=== PATIENT | male | born 1990 | race African-American/Black ===

== ENCOUNTER 2016-09-17 07:22 | Emergency (ER) | payer OTHER ==
[2016-09-17 07:26] VITALS: RESP 18; TEMP 97.9
[2016-09-17] MEDS ORDERED: ACETAMINOPHEN TAB 325 MG TAB PO STA (07:45)
[2016-09-17] MEDS ORDERED: KETOROLAC 60 MG/2 ML VIAL IM STA (07:45)
[2016-09-17] MEDS ORDERED: DIAZEPAM 5 MG TAB PO STA (07:45)
[2016-09-17] MEDS ORDERED: HYDROcodone/APAP 5-325MG 1 EACH TAB PO STA (07:45)
--- NOTE | 2016-09-17 08:48 | ED ---
General Adult HPI - General Chief complaint: Headache Stated complaint: not feeling well Time Seen by Provider: 09/17/16 07:27 Source: patient, RN notes reviewed, old records reviewed Mode of arrival: ambulatory Limitations: no limitations - History of Present Illness Initial comments: This is a 26-year-old male here with nonspecific symptoms. Patient has no significant medical history for mild marijuana smoking. No drugs or alcohol otherwise. Patient states he has mild back pain muscular pain occasional headache and feels that he may have fever but chills. Patient has no sick contacts or travel history no nausea vomiting or diarrhea. No recent hospitalizations. Patient has no modifying factors for sepsis at home, has taken no Motrin or Tylenol. - Related Data Home Medications Medication Instructions Recorded Confirmed Acetaminophen Tab [Tylenol Tab] 325 mg PO Q4H PRN 07/25/16 09/17/16 Ibuprofen [Motrin] 200 - 400 mg PO Q6HR PRN 09/17/16 09/17/16 Allergies Allergy/AdvReac Type Severity Reaction Status Date / Time No Known Allergies Allergy Verified 09/17/16 07:35 Review of Systems ROS Statement: Those systems with pertinent positive or pertinent negative responses have been documented in the HPI. ROS Other: All systems not noted in ROS Statement are negative. Past Medical History Past Medical History: No Reported History History of Any Multi-Drug Resistant Organisms: None Reported Past Surgical History: No Surgical Hx Reported Past Psychological History: No Psychological Hx Reported Smoking Status: Current every day smoker Past Alcohol Use History: Occasional Past Drug Use History: None Reported General Exam Limitations: no limitations General appearance: alert, in no apparent distress Head exam: Present: atraumatic, normocephalic, normal inspection Eye exam: Present: normal appearance, PERRL, EOMI. Absent: scleral icterus, conjunctival injection, periorbital swelling ENT exam: Present: normal exam, mucous membranes moist Neck exam: Present: normal inspection. Absent: tenderness, meningismus, lymphadenopathy Respiratory exam: Present: normal lung sounds bilaterally. Absent: respiratory distress, wheezes, rales, rhonchi, stridor Cardiovascular Exam: Present: regular rate, normal rhythm, normal heart sounds. Absent: systolic murmur, diastolic murmur, rubs, gallop, clicks GI/Abdominal exam: Present: soft, normal bowel sounds. Absent: distended, tenderness, guarding, rebound, rigid Extremities exam: Present: normal inspection, full ROM, normal capillary refill. Absent: tenderness, pedal edema, joint swelling, calf tenderness Back exam: Present: normal inspection Neurological exam: Present: alert, oriented X3, CN II-XII intact Psychiatric exam: Present: normal affect, normal mood Skin exam: Present: warm, dry, intact, normal color. Absent: rash Course Vital Signs 09/17/16 07:23 Temperature 97.9 F Pulse Rate 58 L Respiratory 18 Rate Blood Pressure 125/69 O2 Sat by Pulse 100 Oximetry - Reevaluation(s) Reevaluation #1: 09/17/16 08:47 Patient's symptoms remained improved Medical Decision Making - Medical Decision Making 26-year-old year for evaluation of headache, body ache and body pain. This time fluids negative the patient will be treated was symptomatically therapy for muscle pain, patient of this time is feeling well, no headache no nausea no vomiting. Patient will be discharged home - Lab Data Lab Results 09/17/16 Range/Units 07:44 Influenza Type A RNA Not Detected (Not Detectd) Influenza Type B (PCR) Not Detected (Not Detectd) Disposition Clinical Impression: Viral syndrome Disposition: HOME SELF-CARE Condition: Good Instructions: Viral Syndrome (ED) Referrals: None,Stated [Primary Care Provider] - 1-2 days
[2016-09-17 09:04] VITALS: BP 127/70; PULSE 60
== END 2016-09-17 08:55 | disposition home or self-care (01) ==
LOC: EC 07:22
DX: B34.9 Viral infection, unspecified (principal); F17.200 Nicotine dependence, unspecified, uncomplicated
CPT/HCPCS: 87502; 99284; 96372; J1885

== ENCOUNTER → 2018-01-03 | Outpatient (CLI) | payer OTHER ==
--- NOTE | 2018-01-03 16:51 | CT ---
EXAMINATION TYPE: CT brain wo/w con DATE OF EXAM: 01/03/2018 COMPARISON: 07/25/2016 HISTORY: [facility] CT DLP: 1891 mGycm, Automated exposure control for dose reduction was used. CONTRAST: Patient injected with 100 mL of Isovue 300. CT of the brain is performed utilizing 3 mm thick sections through the posterior fossa and 3 mm thick sections through the remaining calvarium. Study is performed within 24 hours of arrival to the hospital. No abnormal hyperdensity is present to suggest an acute intracranial hemorrhage. No mass lesion is evident. No acute infarcts are evident. Ventricles and sulci are appropriate for the patient age. Paranasal sinuses and mastoid air cells within the [id number]-tvyy are clear. IMPRESSIONS: 1. Normal pre and postcontrast CT brain. CT cervical spine. COMPARISON: None CT of the cervical spine is performed in the axial plane at 2 mm thick sections. Reconstructed image s in the coronal, and sagittal plane are reviewed on the computer. No acute fractures are evident. Vertebral body alignment is normal. Disc heights are preserved. Vertebral body heights are preserved. No spinal canal stenosis is evident. No neural foraminal stenosis is evident. IMPRESSIONS: 1. Normal CT cervical spine.
== END | disposition home or self-care (01) ==
LOC: RADCTMAIN 12:33
PROVIDERS: ATTEND Family Medicine
DX: R51 Headache (principal)
CPT/HCPCS: 70470; Q9967

== ENCOUNTER → 2018-04-01 | Outpatient (CLI) | payer OTHER ==
--- NOTE | 2018-04-02 10:07 | ECHOF ---
Referral Reason:R01.1 Undiagnosed Cardiac Murmur MEASUREMENTS -------- HEIGHT: 185.4 cm WEIGHT: 62.1 kg BP: RVIDd: 2.4 cm (< 3.3) IVSd: 1.1 cm (0.6 - 1.1) LVIDd: 4.3 cm (3.9 - 5.3) LVPWd: 1.1 cm (0.6 - 1.1) IVSs: 1.2 cm LVIDs: 2.8 cm LVPWs: 1.3 cm LAESV Index (A-L): 21.71 ml/m Ao Diam: 2.6 cm (2.0 - 3.7) AV Cusp: 1.8 cm (1.5 - 2.6) LA Diam: 3.0 cm (2.7 - 3.8) MV EXCURSION: 17.180 mm (> 18.000) MV EF SLOPE: 152 mm/s (70 - 150) EPSS: 0.4 cm MV E Marc: 1.16 m/s MV DecT: 225 ms MV A Marc: 0.38 m/s MV E/A Ratio: 3.02 RAP: 5.00 mmHg RVSP: 33.46 mmHg FINDINGS -------- Resting bradycardia (HR<60bpm). This was a technically good study. The left ventricular size is normal. Left ventricular wall thickness is normal. Overall left vent ricular systolic function is normal with, an EF between 55 - 60 %. The right ventricle is normal in size and function. Normal LA size by volume 22+/-6 ml/m2. The right atrium is normal in size. The aortic valve is trileaflet, and appears structurally normal. No aortic stenosis or regurgitation. The mitral valve is normal. There is trace mitral regurgitation. Trace tricuspid regurgitation present. There is borderline pulmonary hypertension. The right vent ricular systolic pressure, as measured by Doppler, is 33.46mmHg. Trace/mild (physiologic) pulmonic regurgitation. The aortic root size is normal. Normal inferior vena cava with normal inspiratory collapse consistent with estimated right atrial pre ssure of 5 mmHg. CONCLUSIONS -------- 1. Resting bradycardia (HR<60bpm). 2. This was a technically good study. 3. The left ventricular size is normal. 4. Left ventricular wall thickness is normal. 5. Overall left ventricular systolic function is normal with, an EF between 55 - 60 %. 6. Normal LA size by volume 22+/-6 ml/m2. 7. The aortic valve is trileaflet, and appears structurally normal. No aortic stenosis or regurgitati on. 8. There is trace mitral regurgitation. 9. Trace tricuspid regurgitation present. 10. There is borderline pulmonary hypertension. 11. The right ventricular systolic pressure, as measured by Doppler, is 33.46mmHg. 12. Trace/mild (physiologic) pulmonic regurgitation. 13. The aortic root size is normal. BREAKER LAYER: Humza Sultana RDCS
== END | disposition home or self-care (01) ==
LOC: RADECHMAIN 15:04
PROVIDERS: ATTEND Family Medicine
DX: I08.1 Rheumatic disorders of both mitral and tricuspid valves (principal); I27.20 Pulmonary hypertension, unspecified
CPT/HCPCS: 93306

== ENCOUNTER → 2018-04-17 | Outpatient (CLI) | payer OTHER ==
--- NOTE | 2018-04-17 22:22 | MR ---
EXAMINATION TYPE: MR shoulder LT wo con DATE OF EXAM: 04/17/2018 COMPARISON: NONE HISTORY: Lt shoulder pain x 3 yrs, had recurring injury 3 mos ago TECHNIQUE: Multiplanar, multisequence imaging of the left shoulder is performed without contrast. FINDINGS: Rotator Cuff: Distal supraspinatus and infraspinatus tendons are both intact humeral head attachment. Subscapularis tendon is felt intact. Rotator cuff muscle bulk is preserved. Acromioclavicular Joint: Acromioclavicular joint is felt within normal limits. There is type II downs loping acromion. No significant spurring is seen. Underlying fat plane is maintained. Glenohumeral Joint: There is small glenohumeral joint effusion. No significant spurring is seen. Labrum: The labrum appears grossly intact given limitation of non-arthrogram study. Biceps Tendon: The long head of biceps is in normal location within bicipital groove. Bone marrow signal: There is heterogeneity consistent with red marrow reconversion the proximal humer al metaphysis. There is 5 mm oval lesion of low T1 and T2 hypointensity favoring benign bone island o r other benign etiology. This can be correlated with plain films. Other: No additional significant abnormality is appreciated. IMPRESSION: No rotator cuff or labral tear is evident.
== END | disposition home or self-care (01) ==
LOC: RADMRIMAIN 19:54
PROVIDERS: ATTEND Family Medicine
DX: M25.512 Pain in left shoulder (principal)

== ENCOUNTER 2019-03-10 10:49 | Emergency (ER) | payer OTHER ==
[2019-03-10 11:04] VITALS: BP 116/66; PULSE 62; RESP 18; TEMP 98.1
--- NOTE | 2019-03-10 11:59 | ED ---
General Adult HPI - General Chief complaint: Skin/Abscess/Foreign Body Stated complaint: Bump on arm Time Seen by Provider: 03/10/19 11:05 Source: patient, RN notes reviewed Mode of arrival: ambulatory Limitations: no limitations - History of Present Illness Initial comments: 28-year-old male presents emergency from chief complaint of bump on his left a rm. Patient states has been there for several months but states that is increased in size. Patient states is slightly irritating at this time. Denies any discoloration no fevers or chills. Denies any trauma. No paresthesias or weakness to his left arm. Patient states that he's had no drainage denies poking at the area. - Related Data Home Medications Medication Instructions Recorded Confirmed Naproxen Sodium [Aleve] 220 - 440 mg PO DAILY PRN 03/10/19 03/10/19 Allergies Allergy/AdvReac Type Severity Reaction Status Date / Time No Known Allergies Allergy Verified 03/10/19 11:32 Review of Systems ROS Statement: Those systems with pertinent positive or pertinent negative responses have been documented in the HPI. ROS Other: All systems not noted in ROS Statement are negative. Past Medical History Past Medical History: No Reported History History of Any Multi-Drug Resistant Organisms: None Reported Past Surgical History: No Surgical Hx Reported Past Psychological History: No Psychological Hx Reported Smoking Status: Current every day smoker Past Alcohol Use History: Occasional Past Drug Use History: Marijuana General Exam Limitations: no limitations General appearance: alert, in no apparent distress Head exam: Present: atraumatic, normocephalic, normal inspection Respiratory exam: Present: normal lung sounds bilaterally. Absent: respiratory distress, wheezes, rales, rhonchi, stridor Cardiovascular Exam: Present: regular rate, normal rhythm, normal heart sounds. Absent: systolic murmur, diastolic murmur, rubs, gallop, clicks Skin exam: Present: warm, dry, intact, normal color, other (Left upper arm in the tricep region there is a 1 1/2 cm mobile mass which appears to be a lipoma there is no erythema no warmth no drainage has full range of motion and neurovascular intact). Absent: rash Course Vital Signs 03/10/19 11:01 Temperature 98.1 F Pulse Rate 62 Respiratory 18 Rate Blood Pressure 116/66 O2 Sat by Pulse 98 Oximetry Medical Decision Making - Medical Decision Making 28-year-old male presented for a lump on his left arm. This appears to be a lipoma there is no signs of infection does not appear to be an abscess. I did recommend patient follow-up with dermatology or Gen. surgery for removal if bothersome. Patient recently this plan. Return parameters were discussed. Disposition Clinical Impression: Lipoma Disposition: HOME SELF-CARE Condition: Stable Instructions (If sedation given, give patient instructions): Lipoma (ED) Additional Instructions: Please return to the Emergency Department if symptoms worsen or any other concerns. Is patient prescribed a controlled substance at d/c from ED?: No Referrals: None,Stated [Primary Care Provider] - 1-2 days Omar Zhu DO [Doctor of Osteopathic Medicine] - 1-2 days Sarah Harrison MD [STAFF PHYSICIAN] - 1-2 days Time of Disposition: 11:59
== END 2019-03-10 12:51 | disposition home or self-care (01) ==
LOC: EC 10:49
DX: D17.22 Benign lipomatous neoplasm of skin and subcutaneous tissue of left arm (principal); F17.200 Nicotine dependence, unspecified, uncomplicated
CPT/HCPCS: 99283